=== PATIENT | female | born 1960 | race Caucasian/White ===

== ENCOUNTER 2018-03-07 09:45 | Outpatient (CLI) | payer MEDICARE, OTHER, SELFPAY | END 2018-03-07 09:46 | PROVIDERS: PCP Family Medicine; Visit Provider Nurse Practitioner Adult Health | DX: G43.009 Migraine without aura, not intractable, without status migrainosus (principal); M54.2 Cervicalgia; I10 Essential (primary) hypertension | CPT/HCPCS: 99213 ==

== ENCOUNTER → 2018-04-30 13:09 | Outpatient (BNVA) | payer MEDICARE, OTHER, SELFPAY | PROVIDERS: PCP Family Medicine; Visit Provider Nurse Practitioner Adult Health | DX: G43.009 Migraine without aura, not intractable, without status migrainosus (principal); I10 Essential (primary) hypertension | CPT/HCPCS: 99213 ==

== ENCOUNTER 2018-05-17 01:08 | Outpatient (CLI) | payer MEDICARE, OTHER, SELFPAY ==
--- NOTE | 2018-05-17 11:52 | DI.MAMMO_ITS ---
SYMPTOM/DIAGNOSIS: SCREENING, Z12.31 MAMMOGRAMS: Mammograms were interpreted according to the usual protocol including computer analysis with CAD system, tomosynthesis and C view imaging. Comparison with prior examinations. Breast density B. No masses or microcalcifications are seen. There is nothing to suggest malignancy. IMPRESSION: Negative mammogram. Routine screening is recommended. Category I. MQSA ASSESSMENT OF FINDINGS: Negative. Category 1. Patient will receive a letter notifying them of these results. BI-RADS category B. There are scattered areas of fibroglandular density.
--- NOTE | 2018-05-17 13:39 | DI.US_ITS ---
SYMPTOMS/DIAGNOSIS: SWELLING, PAIN LT LEG, R22.42, M79.662, M79.89 LEFT LOWER EXTREMITY ULTRASOUND: The deep veins of the left lower extremity show normal compression, augmentation and color flow. No evidence of a deep venous thrombus is seen. The visualized portions of the greater saphenous vein are patent and show normal blood flow and compression. IMPRESSION: No evidence of a left lower extremity deep venous thrombus, barber's cyst or superficial thrombophlebitis.
== END 2018-05-17 01:28 ==
PROVIDERS: PCP Family Medicine; Visit Provider Family Medicine
DX: R22.42 Localized swelling, mass and lump, left lower limb (principal); M79.89 Other specified soft tissue disorders; M79.662 Pain in left lower leg; Z12.31 Encounter for screening mammogram for malignant neoplasm of breast
CPT/HCPCS: 77063; 77067; 93971

== ENCOUNTER → 2018-09-16 13:54 | Outpatient (BNVA) | payer MEDICARE, OTHER, SELFPAY | PROVIDERS: PCP Family Medicine; Visit Provider Nurse Practitioner Adult Health | DX: G43.009 Migraine without aura, not intractable, without status migrainosus (principal); F32.9 Major depressive disorder, single episode, unspecified | CPT/HCPCS: 99213 ==

== ENCOUNTER 2018-10-02 11:30 | Outpatient (CLI) | payer MEDICARE, OTHER, SELFPAY ==
--- NOTE | 2018-10-02 16:30 | DI.RAD_ITS ---
SYMPTOM/DIAGNOSIS: FEVER, COUGH, J06.9 PA AND LATERAL CHEST: The heart is normal in size. The lungs are clear. The mediastinal structures and pleura appear intact. CONCLUSION: Normal chest.
== END 2018-10-02 11:50 ==
PROVIDERS: PCP Family Medicine; Visit Provider Internal Medicine
DX: R50.9 Fever, unspecified (principal); R05 Cough; J06.9 Acute upper respiratory infection, unspecified
CPT/HCPCS: 71046

== ENCOUNTER → 2018-10-23 13:49 | Outpatient (BNVA) | payer MEDICARE, OTHER, SELFPAY | PROVIDERS: PCP Family Medicine; Visit Provider Nurse Practitioner Adult Health | DX: G43.009 Migraine without aura, not intractable, without status migrainosus (principal); I10 Essential (primary) hypertension | CPT/HCPCS: 99213 ==

== ENCOUNTER → 2018-12-11 12:50 | Outpatient (BNVA) | payer MEDICARE, OTHER, SELFPAY | PROVIDERS: PCP Family Medicine; Visit Provider Nurse Practitioner Adult Health | DX: G43.009 Migraine without aura, not intractable, without status migrainosus (principal) | CPT/HCPCS: 99213 ==

== ENCOUNTER → 2019-01-21 13:02 | Outpatient (BNVA) | payer MEDICARE, OTHER, SELFPAY | PROVIDERS: PCP Family Medicine; Visit Provider Nurse Practitioner Adult Health | DX: G43.009 Migraine without aura, not intractable, without status migrainosus (principal); I10 Essential (primary) hypertension | CPT/HCPCS: 99213 ==

== ENCOUNTER → 2019-03-04 12:53 | Outpatient (BNVA) | payer MEDICARE, OTHER, SELFPAY | PROVIDERS: PCP Family Medicine; Visit Provider Nurse Practitioner Adult Health | DX: G43.009 Migraine without aura, not intractable, without status migrainosus (principal); I10 Essential (primary) hypertension | CPT/HCPCS: 99213 ==

== ENCOUNTER → 2019-10-28 08:51 | Outpatient (BNVA) | payer MEDICARE, OTHER, SELFPAY | PROVIDERS: PCP Family Medicine; Referring Provider Family Medicine; Visit Provider Nurse Practitioner Adult Health | DX: G43.009 Migraine without aura, not intractable, without status migrainosus (principal); I10 Essential (primary) hypertension | CPT/HCPCS: 99213; 99441 ==

== ENCOUNTER → 2020-01-27 13:52 | Outpatient (BNVA) | payer MEDICARE, OTHER, SELFPAY | PROVIDERS: PCP Family Medicine; Referring Provider Family Medicine; Visit Provider Nurse Practitioner Adult Health | DX: G43.009 Migraine without aura, not intractable, without status migrainosus (principal); F39 Unspecified mood [affective] disorder; M62.838 Other muscle spasm; S61.451A Open bite of right hand, initial encounter; W55.01XA Bitten by cat, initial encounter; K59.00 Constipation, unspecified | CPT/HCPCS: 99213 ==

== ENCOUNTER 2020-01-28 01:12 | Outpatient (CLI) | payer MEDICARE, OTHER, SELFPAY ==
[2020-01-28 10:13] LABS: Calculated LDL 132 mg/dL (<100); Cholesterol 210 mg/dL (<200); Glucose 110 mg/dL (74-106); HDL Cholesterol 48 mg/dL (40-60); Triglyceride 150 mg/dL (<150)
[2020-01-29 04:48] LABS: Vitamin D 25 Total 54.5 ng/ml (30-100)
== END 2020-01-28 01:32 ==
PROVIDERS: PCP Family Medicine
DX: E78.5 Hyperlipidemia, unspecified (principal); F39 Unspecified mood [affective] disorder; G47.00 Insomnia, unspecified; I10 Essential (primary) hypertension; R53.83 Other fatigue; M85.9 Disorder of bone density and structure, unspecified
CPT/HCPCS: 36415; 80061; 82306; 82947; 84443

== ENCOUNTER → 2020-02-26 13:01 | Outpatient (BNVA) | payer MEDICARE, OTHER, SELFPAY | PROVIDERS: PCP Family Medicine; Referring Provider Family Medicine; Visit Provider Nurse Practitioner Adult Health | DX: G43.009 Migraine without aura, not intractable, without status migrainosus (principal); I10 Essential (primary) hypertension | CPT/HCPCS: 99213 ==

== ENCOUNTER → 2020-04-29 13:01 | Outpatient (BNVA) | payer MEDICARE, OTHER, SELFPAY | PROVIDERS: Referring Provider Family Medicine; Visit Provider Nurse Practitioner Adult Health | DX: G43.009 Migraine without aura, not intractable, without status migrainosus (principal); I10 Essential (primary) hypertension | CPT/HCPCS: 99213 ==

== ENCOUNTER → 2020-06-17 08:00 | Outpatient (BNVA) | payer MEDICARE, OTHER, SELFPAY | PROVIDERS: Visit Provider Nurse Practitioner Adult Health | DX: G43.009 Migraine without aura, not intractable, without status migrainosus (principal); I10 Essential (primary) hypertension | CPT/HCPCS: 99213; 99441 ==

== ENCOUNTER → 2020-10-06 12:54 | Outpatient (BNVA) | payer MEDICARE, OTHER, SELFPAY | PROVIDERS: Visit Provider Nurse Practitioner Adult Health | DX: G43.009 Migraine without aura, not intractable, without status migrainosus (principal) | CPT/HCPCS: 99213 ==

== ENCOUNTER 2021-02-15 03:48 | Outpatient (CLI) | payer MEDICARE, OTHER, SELFPAY ==
[2021-02-15 10:37] LABS: ALT 60 U/L (14-59); AST 31 U/L (15-37); Albumin 3.9 g/dL (3.4-5.0); Alkaline Phosphatase 84 U/L (46-116); Anion Gap 12.1 mmol/L (3-11); BUN 10 mg/dL (7-18); CO2 21.9 mmol/L (21.0-32.0); CREATININE 0.8 mg/dL (0.55-1.02); Calcium 8.8 mg/dL (8.5-10.1); Calculated LDL 111 mg/dL (<100); Chloride 108 mmol/L (98-107); Cholesterol 190 mg/dL (<200); Glucose 104 mg/dL (74-106); HDL Cholesterol 47 mg/dL (40-60); Potassium 3.8 mmol/L (3.5-5.1); Sodium 142 mmol/L (136-145); TSH (W/Ref FT4) 1.31 uIU/mL (0.36-3.74); Triglyceride 164 mg/dL (<150)
[2021-02-15 10:52] LABS: Bilirubin, Total 0.4 mg/dL (0.2-1.0)
== END 2021-02-15 03:49 | disposition home or self-care (01) ==
LOC: LBO 03:48
DX: E78.5 Hyperlipidemia, unspecified (principal); R53.83 Other fatigue; F34.9 Persistent mood [affective] disorder, unspecified; G47.00 Insomnia, unspecified
CPT/HCPCS: 36415; 80053; 80061; 84443

== ENCOUNTER → 2021-04-13 07:22 | Outpatient (BNVA) | payer MEDICARE, OTHER, SELFPAY | PROVIDERS: Visit Provider Nurse Practitioner Adult Health | DX: G43.009 Migraine without aura, not intractable, without status migrainosus (principal) | CPT/HCPCS: 99213 ==

== ENCOUNTER 2021-11-15 00:30 | Outpatient (CLI) | payer MEDICARE, OTHER, SELFPAY ==
--- NOTE | 2021-11-15 07:15 | DI.MAMMO_ITS ---
Exam(s) MAMMO SCREENING EXAM: MAMMO SCREENING CLINICAL HISTORY: screening,z12.39. TECHNIQUE: Bilateral full field digital CC and MLO mammographic images were obtained with 3D tomosyn thesis and utilizing computer aided detection (CAD). COMPARISON: Prior mammograms were reviewed, the most recent being May 2008. FINDINGS: There has been no significant change in the appearance and distribution fibroglandular tissue. There are no CAD designations There are no new spiculated masses nor malignant appearing microcalcification groups. There is a small benign-appearing nodule in the left breast which has the appearance of a probable be nign intramammary lymph node. There is no significant architectural distortion nor skin thickening-retraction. IMPRESSION: Benign findings. No radiographic evidence of malignancy. BI-RADS Category 2 - Benign Findings Breast Density - Category B - Scattered areas of fibroglandular density Breast density Category C or D implies that the patient has dense breast tissue. Dense breast tissue can make it harder to find cancer on a mammogram. Dense breast tissue is also associated with an incr eased risk of breast cancer. This information about the result of the mammogram report was provided to the patient to raise their awareness. Use this report when you speak with the patient about their risks for breast cancer, which includes their family history. At that time, you may recommend additional screening tests (Ultrasoun d or MRI) as these tests may add significant information. A negative radiographic report should not delay biopsy if a dominant or clinically suspicious mass is present. Up to ten percent of cancers are not identified on mammography. A negative report may reinforce clinical impression. Adenosis and dense breasts may obscure an underlying neoplasm. False positive reports average 6 to 10%. Patient will receive a letter notifying them of these results.
== END 2021-11-15 00:50 ==
DX: Z12.31 Encounter for screening mammogram for malignant neoplasm of breast (principal)
CPT/HCPCS: 77063; 77067

== ENCOUNTER 2022-03-31 14:24 | Outpatient (REF) | payer MEDICARE, OTHER, SELFPAY ==
--- NOTE | 2022-03-31 13:00 | PAPFT_PTH ---
PATIENT: Amy Wilkins LOC: [facility] U#:[id number] AGE/SX: 61/F ROOM: RE03/31/[address]: KAYLA Christine : 1960 BED: DIS: 03/31/2022 SPEC #: [id number] RECD: 04/03/22 12:36 STATUS: YAMILET RELior #: [id number] PARTHA: 03/31/22 13:[address]: Annette Toribio DEPT: [facility] Cytology RECD BY: Ritika Waller ENTERED: 04/03/22 12:36 SP TYPE: PAPFT OTHR DR: Nanette Samaniego APRN Tissues: 1 - CX/ENDOCX FOR PAP SMEARS Procedures: PAP THIN PREP/[facility] Screening HPV DNA PROBE Comments: [id number]
== END 2022-03-31 14:25 | disposition home or self-care (01) ==
LOC: LBN 14:24
PROVIDERS: Visit Provider Nurse Practitioner Family
DX: Z12.4 Encounter for screening for malignant neoplasm of cervix (principal); Z11.51 Encounter for screening for human papillomavirus (HPV); Z01.419 Encounter for gynecological examination (general) (routine) without abnormal findings
CPT/HCPCS: 88142; 87624

== ENCOUNTER → 2022-04-05 13:30 | Outpatient (BNVA) | payer MEDICARE, OTHER, SELFPAY | PROVIDERS: Visit Provider Nurse Practitioner Adult Health | DX: G43.009 Migraine without aura, not intractable, without status migrainosus (principal); F32.2 Major depressive disorder, single episode, severe without psychotic features; M25.511 Pain in right shoulder | CPT/HCPCS: 99213; 99214 ==